=== PATIENT | female | born 1940 | race Caucasian/White ===

== ENCOUNTER 2018-08-29 04:09 | Observation (INO) | payer MEDICARE ==
[2018-08-29 04:57] LABS: #Eosinphils 0.4 thou/uL (0.0-0.7); #Lymphocytes 1.4 thou/uL (1.20-3.40); #Monocytes 0.5 thou/uL (0.11-0.59); #Neutrophils 3.4 thou/uL (1.40-6.50); %Basophils 0.3 % (0.0-1.0); %Eosinophils 7.4 % (0.0-10.0); %Monocytes 8.4 % (0.0-10.0); %Neutrophils 58.9 % (42.0-75.0); Mean Corpuscular HGB CONC 33.2 g/dL (32.0-36.0); Mean Corpuscular Hemoglobin 30.3 pg (27.0-31.0); Mean Corpuscular Volume 91.2 fL (78.0-98.0); Mean Platelet Volume 6.5 fL (7.4-10.4); Platelet Count 213 thou/uL (130-400); RBC Distribution Width 11.6 % (11.5-14.5); White Blood Cell (WBC) Count 5.7 thou/uL (4.8-10.8)
[2018-08-29 05:16] LABS: ALT (SGPT) 15 U/L (8-55); AST (SGOT) 15 U/L (5-34); Albumin 3.5 g/dL (3.4-4.8); Alkaline Phosphatase 126 U/L (40-150); Anion Gap 10 mmol/L (10-20); BUN (Urea Nitrogen) 10 mg/dL (9.8-20.1); Bilirubin, Total 0.5 mg/dL (0.2-1.2); Calc. Creatinine Clearance 0 mL/min (70-130); Calcium 9.4 mg/dL (7.8-10.44); Carbon Dioxide 30 mmol/L (23-31); Chloride 103 mmol/L (98-107); Estimated GFR-MDRD 48; Globulin 3.2 g/dL (2.4-3.5); Glucose 113 mg/dL (83-110); Potassium 4.4 mmol/L (3.5-5.1); Protein, Total 6.7 g/dL (6.0-8.3); Sodium 139 mmol/L (136-145)
[2018-08-29] MEDS ORDERED: Mag-Al 1200 mg/1200 mg/30 ML UDCUP ONE (05:42)
[2018-08-29] MEDS ORDERED: Lidocaine Viscous Sol 2% 15 ml UD Cup ONE (05:42)
--- NOTE | 2018-08-29 08:07 | RAD ---
SINGLE VIEW CHEST: Date: 08/29/18 COMPARISON: 10/23/14. HISTORY: Chest pain. FINDINGS: Single view of the chest shows a normal sized cardiomediastinal silhouette. There is no evidence of c onsolidation, mass, or pleural effusion. The bones are unremarkable. IMPRESSION: No evidence of acute cardiopulmonary disease. POS: [facility]
[2018-08-29 08:14] LABS: Troponin I Less than 0.010 ng/mL (< 0.028)
[2018-08-29 11:10] LABS: Troponin I 0.015 ng/mL (< 0.028)
[2018-08-29] MEDS ORDERED: Lisinopril 5 MG TAB PO SCH (14:00)
--- NOTE | 2018-08-29 15:00 | CON ---
DATE OF CONSULTATION: HISTORY OF PRESENT ILLNESS: The patient is a very pleasant 77-year-old woman who presents for evaluation of palpitations and chest and abdominal discomfort. The patient has a history of pre-excitation syndrome. She was seen in 2015 with palpitations. She had seen an agriculturist who after a long discussion was going to consider proceeding with ablation. This procedure was not performed. The patient reports having occasional palpitations. She presented to the emergency room with severe palpitations and reported to have abdominal and chest discomfort. The patient was in atrial fibrillation according to the EMS records and was given 5 of Lopressor and converted to sinus rhythm. The patient states that her chest discomfort resolved immediately after she received the medication. She denies having present discomfort. She has continued to have abdominal discomfort. PAST MEDICAL HISTORY: 1. Pre-excitation syndrome. 2. Hypertension. 3. Dyslipidemia. 4. Anxiety disorder. PAST SURGICAL HISTORY: Hysterectomy. MEDICATIONS: 1. Lisinopril 5 daily. 2. Metoprolol 50 daily. 3. Prozac 10 daily. ALLERGIES: IBUPROFEN AND XANAX. SOCIAL HISTORY: Nonsmoker. FAMILY HISTORY: No strong family history of coronary artery disease. MEDICATIONS ON ADMISSION: See nursing list. REVIEW OF SYSTEMS: A 10-point system otherwise unremarkable. No history of easy bruising or bleeding. PHYSICAL EXAMINATION: GENERAL: Obese woman, in no acute distress. VITAL SIGNS: Her blood pressure was 138/85, heart rate 76. NECK: Showed no jugular venous distention. LUNGS: Clear to auscultation. HEART: Regular rate and rhythm. Normal S1, S2. No murmurs. ABDOMEN: Distended. EXTREMITIES: Show no edema. VASCULAR: Radial pulses are 2+. LABORATORY DATA: White blood count 5.7, hemoglobin 13.0, hematocrit 39.2, platelets 213. Sodium 139, potassium 4.4, chloride 103, bicarb 30, BUN 10, creatinine is 1.1. Troponin less than 0.01. BNP was 52. IMAGING: Her EKG revealed normal sinus rhythm, normal ECG. IMPRESSION: 1. Possible atrial fibrillation with no documented arrhythmia. 2. History of pre-excitation syndrome. 3. Hypertension. 4. Dyslipidemia. 5. Obesity. PLAN: This patient presents for cardiac presents with probable possible atrial fibrillation. We will ask electrophysiology to further evaluate whether an ablation should be performed. The patient was scheduled to undergo a stress test. We will follow this patient with you through her hospitalization. Job ID: [id number] [facility]
[2018-08-29] MEDS ORDERED: Lisinopril 10 MG TAB ONE (15:11)
--- NOTE | 2018-08-29 20:25 | CON ---
DATE OF CONSULTATION: 08/29/2018 HISTORY OF PRESENT ILLNESS: I am seeing Ms. Erazo at our [facility] ER as an Electrophysiology advertising consultant. Her problems are: 1. Recurrent palpitations. a. Presentation to the ER today with episode of rapid heart rates up to 140 beats per minute with EKG from EMS reveals irregular rhythm, possible atrial fibrillation at 120 beats per minute. b. Prior EKGs were suggestive of initial slurring of QRS, but on the current EKG , no definite pre-excitation is seen. c. No history of narrow complex SVT in the past. 2. Negative cardiac workup in the past with echo from 10/09/2016 reveals moderate TR, mild pulmonary hypertension, LVEF 55%, and negative stress test in September 15, 2016. 3. Risk factors including hyperlipidemia and hypertension. 4. History of chest pain syndrome. 5. Obesity. ALLERGIES: NONE. MEDICATIONS: At home included: 1. Lisinopril. 2. Metoprolol 100 mg possible twice a day or once a day. 3. Aleve. 4. Nifedipine. She is not clear about her medications. SUBJECTIVE: Ms. Erazo started noticing rapid palpitations starting this morning with rapid heart rates. She felt some abdominal and chest tightness sensation along with them. EMS recorded EKGs as noted above because of atrial fibrillation. Since arrival, she remained stable. Cardiac enzymes were negative initially. She is asymptomatic now. No fever, chills, or cough. No stroke-like symptoms. No neurological deficits. Rest of 12-point system otherwise unremarkable. PAST MEDICAL HISTORY: As above. She has history of some PVCs in the past, hypertension, and dyslipidemia. PAST SURGICAL HISTORY: Significant for hysterectomy. SOCIAL HISTORY: The patient is . is at bedside. Denies smoking , EtOH, or drug use. FAMILY HISTORY: Not contributory. OBJECTIVE DATA: VITAL SIGNS: Blood pressure is 126/67, heart rate 69, respiratory rate 20. The patient is afebrile. PHYSICAL EXAMINATION: GENERAL: Alert and oriented woman, in no apparent distress. NECK: Supple. Jugular veins not distended. CHEST: Coarse without crackles. HEART: Sounds are regular to rate and rhythm. No murmur or gallop. ABDOMEN: Benign. Bowel sounds positive. EXTREMITIES: Lower extremity without edema, clubbing, or cyanosis. DATABASE: EKG is reviewed. Again, initial EKG from EMS reveals likely atrial fibrillation, nonspecific ST-T changes, rate of 120 beats per minute, no varying preexcitation is seen. The subsequent EKGs in the hospital reveal sinus rhythm, rate 87 beats per minute, normal SC, no definite pre-excitation. LABORATORY DATA: White cell count 5.7, hemoglobin 13, platelet count is 213. Sodium 139, potassium 4.4, BUN is 10, and creatinine 1.1. ASSESSMENT AND PLAN: Ms. Erazo is a pleasant 77-year-old woman with prior history of hypertension, dyslipidemia, mild pulmonary hypertension possibly due to obesity, no significant structural heart disease in prior workup. Otherwise, she had abnormal EKGs, which were possibly suggestive of pre-excitation, but no SVT is documented in the past. She is presenting with her first documented episode of atrial fibrillation, although, shorter palpitations and spells were noted in the past. We did discussed her arrhythmia issues. She could be considered for arrhythmia suppression and also anticoagulation. She has elevated CHADS-VASc score of 4 with age, gender, and hypertension. No recent bleeding issues are noted. Further monitoring might be reasonable to assess arrhythmia burden. It might consider initiating her on antiarrhythmic agent possibly flecainide, especially if her stress test by Dr. Hough is negative. Alternatively, ablation therapy is a good consideration, especially in view of the questionable pre-excitation syndrome, which could be assessed during EP study as well. For now, she appears to be stable for discharge. Discussed with Dr. Hough. He will see her as an outpatient. Dr. Hough will initiate monitoring and stress testing in the near future. Job ID: [id number] [facility]
[2018-08-30] MEDS ORDERED: Lisinopril 5 MG TAB PO SCH (09:00)
--- NOTE | 2018-08-30 11:54 | HP ---
CHIEF COMPLAINT: Chest discomfort, palpitation, and abdominal discomfort. HISTORY OF PRESENT ILLNESS: Ms. Erazo is a 77-year-old female with past medical history of hypertension, pre-excitation syndrome, anxiety disorder, woke up last night because of severe palpitations. The patient says her heart was racing fast; she did not feel any dizzy, but she felt some discomfort in the chest. No real chest pain. There is also some discomfort in the abdomen, did not have nausea or vomiting. No shortness of breath. No headache. Palpitation persisted, so she got up and checked her blood pressure which was 160/100, and her heart rate was in the 160s. At this point, she called the EMS to come to the hospital. EMS found the patient to have rapid heart rate, possibly atrial fibrillation and she was given Lopressor by the EMS about 5 mg and then she arrived in the ER, converted to normal sinus rhythm, and her discomfort in the abdomen also improved. The patient was evaluated in the ER. She is being admitted to rule out myocardial infarction as well as for evaluation of her atrial fibrillation, which is a new onset. PAST MEDICAL HISTORY: 1. Hypertension. 2. Hyperlipidemia. 3. Anxiety disorder. 4. Pre-excitation syndrome. PAST SURGICAL HISTORY: Status post hysterectomy. CURRENT MEDICATIONS: 1. Metoprolol 100 mg daily. 2. Lisinopril 40 mg daily. 3. Prozac 10 mg daily. ALLERGIES: ALLERGIC TO IBUPROFEN AND XANAX SOCIAL HISTORY: The patient lives with family. No history of smoking. No history of alcohol use. FAMILY HISTORY: Nothing significant. REVIEW OF SYSTEMS: CARDIOVASCULAR: Reveals chest discomfort, palpitation. No shortness of breath. RESPIRATORY: No cough, fever. GASTROINTESTINAL: Abdominal discomfort. No nausea or vomiting. CENTRAL NERVOUS SYSTEM: No headache or dizziness. PHYSICAL EXAMINATION: GENERAL: The patient is alert, awake, and oriented x3. VITAL SIGNS: Temperature 98, pulse 70, respirations 20,BP130/70 HEENT: Head is normocephalic and atraumatic. NECK: Supple. No JVD. LUNGS: Bilateral air entry . HEART: S1 and S2 present. ABDOMEN: Soft. No guarding, no tenderness. LABORATORY DATA: CBC shows WBC 5.7, hemoglobin 13, hematocrit 39, platelets 213. Metabolic panel shows sodium 139, potassium 4.4, chloride 103, CO2 30, BUN 10, creatinine 1.1, glucose 113, troponin I less than 0.015, BNP 52.2. Chest x-ray negative. EKG shows normal sinus rhythm, no acute ST-T wave changes. ASSESSMENT: 1. Possible atrial fibrillation with rapid ventricular rate, converted to normal sinus rhythm. 2. Hypertension, uncontrolled. 3. Hyperlipidemia. 4. Anxiety disorder. 5. History of pre-excitation syndrome. PLAN: 1. Cardiology consult. 2. Allergies to ibuprofen, Xanax. 3. Diet, cardiac. 4. Continue home medications. 5. Possible Cardiolite stress test. Job ID: [id number] [facility]
--- NOTE | 2018-08-31 17:15 | EKG ---
Test Reason : Blood Pressure : / mmHG Vent. Rate : 087 BPM Atrial Rate : 087 BPM P-R Int : 166 ms QRS Dur : 084 ms QT Int : 348 ms P-R-T Axes : 044 017 019 degrees QTc Int : 418 ms Normal sinus rhythm Low voltage QRS Borderline ECG Confirmed by DEYANIRA MAYFIELD ([id number]), editorial clerk FANY RAMOS ([id number] on 08/31/2018 5:14:55 PM Referred By: Confirmed By:DEYANIRA MAYFIELD
--- NOTE | 2018-09-05 15:27 | DIS ---
DATE OF ADMISSION: 08/29/2018 DATE OF DISCHARGE: 08/29/2018 ADMITTING DIAGNOSES: 1. Atrial fibrillation with rapid ventricular rate. 2. Hypertension, uncontrolled. 3. Hyperlipidemia. 4. Anxiety disorder. 5. History of pre-excitation syndrome. FINAL DIAGNOSES: 1. Possible atrial fibrillation with rapid ventricular rate, converted to normal sinus rhythm. 2. Hypertension, uncontrolled, improved. 3. Hyperlipidemia. 4. Anxiety disorder. 5. History of pre-excitation syndrome. BRIEF SUMMARY OF HOSPITAL COURSE: Ms. Erazo is a 77-year-old female admitted because of severe palpitation. The patient was found to be in atrial fibrillation with rapid ventricular rate. She was given Lopressor IV after which she converted to normal sinus rhythm. A cardiology consult and credentials specialist consultation were done. The patient was seen by Dr. Hough. Initially, he suggested a stress test and also EP consult, whether the patient needed to have ablation for atrial fibrillation. EP consult was done. The patient was seen by Dr. Peterson. His impression was the patient does have atrial fibrillation and she could be a candidate for ablation therapy. The patient can be started on Xarelto and can be discharged home, because she is stable right now. The patient is being discharged home in stable condition and her blood pressure is controlled. She is in normal sinus rhythm. PHYSICAL EXAMINATION: GENERAL: At the time of discharge, she was stable. VITAL SIGNS: Stable. LUNGS: Clear. HEART: Sounds regular. DISCHARGE MEDICATIONS: Include: 1. Lisinopril 5 mg daily. 2. Metoprolol 50 mg daily. 3. Xarelto 20 mg daily. FOLLOWUP: She will come for followup in 2 weeks. Job ID: [id number] [facility]
== END 2018-08-29 19:16 | disposition home or self-care (01) ==
LOC: ERS 04:09 → ERHOLD 06:00
PROVIDERS: ADMIT Internal Medicine; ATTEND Internal Medicine
DX: R00.2 Palpitations (principal); I10 Essential (primary) hypertension; E78.5 Hyperlipidemia, unspecified; F41.9 Anxiety disorder, unspecified; I45.6 Pre-excitation syndrome; Z90.710 Acquired absence of both cervix and uterus; Z88.8 Allergy status to other drugs, medicaments and biological substances; Z79.01 Long term (current) use of anticoagulants; Z79.899 Other long term (current) drug therapy
CPT/HCPCS: 36415; 71045; 80053; 83880; 84443; 84484; 85025; 93005; G0378

== ENCOUNTER 2018-09-21 20:21 | Observation (INO) | payer MEDICARE ==
[2018-09-21] MEDS ORDERED: methylPREDNISolone Sod Succ/PF 125 MG/2 ML VIAL ONE ×2 (20:59→22:28)
[2018-09-21] MEDS ORDERED: Famotidine/PF 20 mg/2ml Vial ONE ×2 (20:59→22:28)
[2018-09-21 21:30] LABS: #Eosinphils 0.3 thou/uL (0.0-0.7); #Lymphocytes 1.7 thou/uL (1.20-3.40); #Monocytes 0.5 thou/uL (0.11-0.59); #Neutrophils 4.6 thou/uL (1.40-6.50); %Basophils 0.1 % (0.0-1.0); %Eosinophils 3.9 % (0.0-10.0); %Lymphocytes 24.1 % (21.0-51.0); %Monocytes 7.6 % (0.0-10.0); %Neutrophils 64.3 % (42.0-75.0); Hemoglobin 13.1 g/dL (12.0-16.0); Mean Corpuscular HGB CONC 33.2 g/dL (32.0-36.0); Mean Corpuscular Hemoglobin 30.1 pg (27.0-31.0); Mean Corpuscular Volume 90.8 fL (78.0-98.0); Mean Platelet Volume 6.5 fL (7.4-10.4); Platelet Count 221 thou/uL (130-400); RBC Distribution Width 11.6 % (11.5-14.5); Red Blood Cell (RBC) Count 4.35 mill/uL (4.20-5.40); White Blood Cell (WBC) Count 7.1 thou/uL (4.8-10.8)
[2018-09-21 21:51] LABS: Anion Gap 10 mmol/L (10-20); BUN (Urea Nitrogen) 14 mg/dL (9.8-20.1); Calc. Creatinine Clearance 0 mL/min (70-130); Calcium 9.3 mg/dL (7.8-10.44); Carbon Dioxide 27 mmol/L (23-31); Chloride 104 mmol/L (98-107); Estimated GFR-MDRD 47; Glucose 123 mg/dL (83-110); Sodium 137 mmol/L (136-145)
[2018-09-22] MEDS ORDERED: Acetaminophen 325 MG TAB PO PRN (00:46)
[2018-09-22] MEDS ORDERED: Ondansetron ODT 4 MG TAB SL PRN (00:46)
[2018-09-22] MEDS ORDERED: Ondansetron PF 4 MG/2 ML Vial IVP PRN (00:46)
[2018-09-22 00:50] VITALS: BMI 46.7
[2018-09-22] MEDS ORDERED: diphenhydrAMINE 50 MG/ML VIAL IVP SCH (06:00)
[2018-09-22] MEDS ORDERED: Cyclobenzaprine 10 MG TAB PO PRN (06:25)
[2018-09-22] MEDS ORDERED: FLUoxetine HCl 20 MG CAP PO SCH ×2 (06:30→09:00)
[2018-09-22] MEDS ORDERED: busPIRone HCl 10 MG TAB PO SCH (09:00)
[2018-09-22] MEDS ORDERED: NIFEdipine XL 30 MG TAB PO SCH (09:00)
[2018-09-22] MEDS ORDERED: Rivaroxaban 10 MG TAB PO SCH (09:00)
[2018-09-22] MEDS ORDERED: Metoprolol Tartrate 100 MG TAB PO SCH (09:00)
[2018-09-22 12:35] VITALS: BP 117/59; TEMP 98.7
--- NOTE | 2018-09-22 20:51 | HP ---
CHIEF COMPLAINT: Allergic reaction with lip swelling and tongue swelling. HISTORY OF PRESENT ILLNESS: Ms. Erazo is a 77-year-old female with past medical history of hypertension, hyperlipidemia, noted to have marked swelling of the lower lip along with part of the tongue was swollen as well. Seemed to have any choking sensation and heaviness swallowing difficulty and noted to have trouble breathing. The patient takes lisinopril. She took some Benadryl, thinking this is allergy reaction, but the swelling did not get better, so she decided to come to the hospital. In the ER, the patient was evaluated and found to have possible angioedema. She was hemodynamically stable. The patient was given Solu-Medrol as well as kept on Benadryl. PAST MEDICAL HISTORY: 1. Hypertension. 2. Hyperlipidemia. 3. Anxiety disorder. 4. Family history of pre-excitation syndrome. 5. Atrial fibrillation, converted to normal sinus rhythm. PAST SURGICAL HISTORY: Status post hysterectomy. CURRENT MEDICATIONS: The patient is on; 1. Metoprolol 100 mg b.i.d. 2. Nifedipine 30 mg b.i.d. 3. Xarelto 20 mg daily. 4. Crestor 10 mg daily. 5. Flexeril 10 mg t.i.d. p.r.n. 6. BuSpar 10 mg b.i.d. 7. Lisinopril 20 b.i.d. 8. Prozac 20 mg daily. ALLERGIES: ALLERGIC TO IBUPROFEN AND XANAX. FAMILY HISTORY: Nothing contributory. SOCIAL HISTORY: The patient lives with family. No history of smoking. No history of alcohol. REVIEW OF SYSTEMS: CARDIOVASCULAR: No chest pain. No shortness of breath. RESPIRATORY: No fever or cough. GASTROINTESTINAL: No nausea, vomiting, abdominal pain. GENITOURINARY: No dysuria or hematuria. CENTRAL NERVOUS SYSTEM: No headaches or dizziness. PHYSICAL EXAMINATION: GENERAL: On examination, the patient is alert, awake, oriented x3. VITAL SIGNS: Temperature 98, pulse 67, respirations 20, blood pressure 130/70. HEENT: Head is normocephalic and atraumatic. Pupils are equal and reactive. Nasopharynx is pale and dry. Lower lip is swollen. Tongue, no swelling. NECK: Supple. No JVD. LUNGS: Bilateral air entry. No rales. No rhonchi. HEART: S1 and S2, regular. ABDOMEN: Soft. No distention. No tenderness. Normal bowel sounds present. RECTAL: Deferred. CENTRAL NERVOUS SYSTEM: No focal deficits. LABORATORY DATA: CBC shows WBC 7, hemoglobin 13, hematocrit 39, platelets 221. Metabolic panel; sodium 137, potassium 4, chloride 104, CO2 of 27. Urea nitrogen 14. Creatinine 1.1, glucose 133. Chest x-ray not done. ASSESSMENT: 1. Angioedema due to KARRIE inhibitor, improving. 2. Hypertension. 3. Hyperlipidemia. 4. History of atrial fibrillation, converted to normal sinus rhythm. PLAN: 1. Vital signs q.4 hours. 2. Activity as tolerated. 3. Allergies, ibuprofen and Xanax. 4. Hep-Lock. 5. Continue home medications. 6. Discontinue lisinopril. 7. Benadryl IVP q.6 hours. The patient possibly will be discharged soon - she has improved. Job ID: [id number]
[2018-09-22] MEDS ORDERED: Rosuvastatin 10 MG TAB PO SCH (21:00)
--- NOTE | 2018-09-23 14:54 | DIS ---
DATE OF ADMISSION: 09/21/2018 DATE OF DISCHARGE: 09/22/2018 ADMITTING DIAGNOSES: 1. Angioedema due to KARRIE inhibitor. 2. Hypertension. 3. Hyperlipidemia. 4. History of atrial fibrillation. FINAL DIAGNOSES: 1. Angioedema due to KARRIE inhibitor, improved. 2. Hypertension. 3. Hyperlipidemia. BRIEF SUMMARY OF HOSPITAL COURSE: Ms. Erazo is a 77-year-old female, admitted because of angioedema causing lip swelling and tongue swelling. She did not have any choking sensation. No shortness of breath. No respiratory distress. The patient was given Benadryl. Initially, she got Solu-Medrol added with Benadryl. Following day, her lip swelling completely gone, her tongue swelling gone. She did not have any problem swallowing. No shortness of breath. In view of improvement, the patient was discharged home. PHYSICAL EXAMINATION: GENERAL: At the time of discharge, she was stable. VITAL SIGNS: Stable. LUNGS: Clear. HEART: Heart sounds regular. ABDOMEN: Soft and nontender. Bowel sounds present. DISCHARGE MEDICATIONS: Include: 1. Nifedipine 30 mg b.i.d. 2. Fluoxetine 20 mg daily. 3. Metoprolol 100 mg b.i.d. 4. Crestor 10 mg at bedtime. 5. Xarelto 20 mg b.i.d. 6. BuSpar 10 mg b.i.d. 7. Flexeril p.r.n. 10 mg t.i.d. FOLLOWUP: The patient will come for followup next week. Job ID: [id number]
== END 2018-09-22 14:25 | disposition home or self-care (01) ==
LOC: ERS 20:21 → 2SW 21:21
PROVIDERS: ADMIT Internal Medicine; ATTEND Internal Medicine
DX: T78.3XXA Angioneurotic edema, initial encounter (principal); T46.4X5A Adverse effect of angiotensin-converting-enzyme inhibitors, initial encounter; I10 Essential (primary) hypertension; E78.5 Hyperlipidemia, unspecified; F41.9 Anxiety disorder, unspecified; I48.91 Unspecified atrial fibrillation; Z79.01 Long term (current) use of anticoagulants; Z79.899 Other long term (current) drug therapy; Z88.6 Allergy status to analgesic agent; Z88.8 Allergy status to other drugs, medicaments and biological substances
CPT/HCPCS: 80048; 85025; 96374; 96375 ×2; 99285; G0378; 36415; J1200; J2930; S0028

== ENCOUNTER 2018-10-21 15:21 | Emergency (ER) | payer MEDICARE ==
--- NOTE | 2018-10-21 16:05 | RAD ---
XR Chest 1 View Portable History: [Syncope. Palpitations.] Comparison: Multiple prior chest radiograph, most recent August 29, 2018 Findings: Heart size mildly enlarged. There is abnormal nodular density right lower lobe, similar to the comparison examination, although better seen on today's exam due to absence of an overlying lead. This was also seen seen back in 2015. No acute osseous abnormality. No pneumothorax or significant effusion. Impression: Marked cardiomegaly. No acute intrathoracic abnormality.
[2018-10-21 16:06] LABS: #Eosinphils 0.2 thou/uL (0.0-0.7); #Lymphocytes 1.7 thou/uL (1.20-3.40); #Monocytes 0.4 thou/uL (0.11-0.59); #Neutrophils 4.3 thou/uL (1.40-6.50); %Basophils 0.6 % (0.0-1.0); %Lymphocytes 25.4 % (21.0-51.0); %Monocytes 5.8 % (0.0-10.0); %Neutrophils 65.3 % (42.0-75.0); Hemoglobin 13.9 g/dL (12.0-16.0); Mean Corpuscular HGB CONC 33.4 g/dL (32.0-36.0); Mean Corpuscular Hemoglobin 30.7 pg (27.0-31.0); Mean Corpuscular Volume 91.9 fL (78.0-98.0); Platelet Count 237 thou/uL (130-400); RBC Distribution Width 11.5 % (11.5-14.5); Red Blood Cell (RBC) Count 4.54 mill/uL (4.20-5.40); White Blood Cell (WBC) Count 6.6 thou/uL (4.8-10.8)
[2018-10-21 16:25] LABS: ALT (SGPT) 12 U/L (8-55); AST (SGOT) 13 U/L (5-34); Albumin 3.8 g/dL (3.4-4.8); Alkaline Phosphatase 111 U/L (40-150); Anion Gap 12 mmol/L (10-20); BUN (Urea Nitrogen) 9 mg/dL (9.8-20.1); Bilirubin, Total 0.7 mg/dL (0.2-1.2); Calc. Creatinine Clearance 0 mL/min (70-130); Calcium 9.2 mg/dL (7.8-10.44); Carbon Dioxide 26 mmol/L (23-31); Chloride 104 mmol/L (98-107); Estimated GFR-MDRD 52; Globulin 2.5 g/dL (2.4-3.5); Glucose 101 mg/dL (83-110); Potassium 4.2 mmol/L (3.5-5.1); Protein, Total 6.3 g/dL (6.0-8.3); Sodium 138 mmol/L (136-145)
== END 2018-10-21 17:53 | disposition home or self-care (01) ==
LOC: ERS 15:21
DX: R55 Syncope and collapse (principal); R00.2 Palpitations; I48.91 Unspecified atrial fibrillation; E78.5 Hyperlipidemia, unspecified; I10 Essential (primary) hypertension; K21.9 Gastro-esophageal reflux disease without esophagitis; F32.9 Major depressive disorder, single episode, unspecified; M19.90 Unspecified osteoarthritis, unspecified site; F41.9 Anxiety disorder, unspecified; Z79.01 Long term (current) use of anticoagulants; Z79.899 Other long term (current) drug therapy
CPT/HCPCS: 36415; 71045; 80053; 84484; 85025; 93005; 96360; 96361

== ENCOUNTER 2022-02-15 23:09 | Emergency (ER) | payer MEDICARE ==
[2022-02-16 00:05] LABS: #Basophils 0.1 thou/uL (0.0-0.2); #Eosinphils 0.2 thou/uL (0.0-0.7); #Lymphocytes 2.6 thou/uL (1.20-3.40); #Monocytes 0.5 thou/uL (0.11-0.59); #Neutrophils 5.8 thou/uL (1.40-6.50); %Basophils 0.7 % (0.0-1.0); %Eosinophils 2.1 % (0.0-10.0); %Lymphocytes 28.5 % (21.0-51.0); %Monocytes 5.5 % (0.0-10.0); %Neutrophils 63.2 % (42.0-75.0); Hemoglobin 15.8 g/dL (12.0-16.0); Mean Corpuscular HGB CONC 33.6 g/dL (32.0-36.0); Mean Corpuscular Hemoglobin 31.3 pg (27.0-31.0); Mean Corpuscular Volume 93.2 fL (78.0-98.0); Mean Platelet Volume 7.3 fL (7.4-10.4); Platelet Count 271 thou/uL (130-400); RBC Distribution Width 11.1 % (11.5-14.5); Red Blood Cell (RBC) Count 5.04 mill/uL (4.20-5.40); White Blood Cell (WBC) Count 9.2 thou/uL (4.8-10.8)
[2022-02-16 00:29] LABS: ALT (SGPT) 12 U/L (8-55); AST (SGOT) 14 U/L (5-34); Albumin 4.4 g/dL (3.4-4.8); Alkaline Phosphatase 111 U/L (40-110); Anion Gap 15 mmol/L (10-20); BUN (Urea Nitrogen) 12 mg/dL (9.8-20.1); Calc. Creatinine Clearance 0 mL/min (70-130); Calcium 10.2 mg/dL (7.8-10.44); Carbon Dioxide 27 mmol/L (23-31); Chloride 101 mmol/L (98-107); Estimated GFR 49; Globulin 3.4 g/dL (2.4-3.5); Glucose 102 mg/dL (83-110); Potassium 3.4 mmol/L (3.5-5.1); Protein, Total 7.8 g/dL (5.8-8.1); Sodium 140 mmol/L (136-145)
== END 2022-02-16 01:38 | disposition home or self-care (01) ==
LOC: ERS 23:09
DX: R00.2 Palpitations (principal); I48.91 Unspecified atrial fibrillation; I10 Essential (primary) hypertension; E78.5 Hyperlipidemia, unspecified; K21.9 Gastro-esophageal reflux disease without esophagitis
CPT/HCPCS: 71045; 80053; 83735; 84443; 84484; 85025; 93005

== ENCOUNTER 2022-04-28 11:46 | Outpatient (CLI) | payer MEDICARE ==
[2022-04-28 13:54] LABS: Hemoglobin 13.9 g/dL (12.0-15.5); Mean Corpuscular HGB CONC 33.1 g/dL (32.0-36.0); Mean Corpuscular Hemoglobin 31.1 pg (27.0-33.0); Mean Platelet Volume 9.7 fl (7.4-10.4); Platelet Count 276 10x3/uL (150-450); RBC Distribution Width 12.5 % (11.5-14.5); Red Blood Cell (RBC) Count 4.47 10x6/uL (3.90-5.03); White Blood Cell (WBC) Count 7.3 10x3/uL (3.5-10.5)
[2022-04-28 14:17] LABS: INR-International Normal Ratio 1.4; PTT 57.1 sec (22.0-33.0); Prothrombin Time 15.1 sec (9.5-12.1)
[2022-04-28 14:20] LABS: ALT (SGPT) 9 U/L (8-55); AST (SGOT) 13 U/L (5-34); Alkaline Phosphatase 118 U/L (40-110); Anion Gap 14 mmol/L (10-20); BUN (Urea Nitrogen) 12 mg/dL (9.8-20.1); Bilirubin, Direct 0.2 mg/dL (0.1-0.3); Bilirubin, Total 0.8 mg/dL (0.2-1.2); Calc. Creatinine Clearance 0 mL/min (70-130); Calcium 9.3 mg/dL (7.8-10.44); Carbon Dioxide 25 mmol/L (23-31); Chloride 104 mmol/L (98-107); Estimated GFR 54; Glucose 100 mg/dL (83-110); Potassium 4.2 mmol/L (3.5-5.1); Protein, Total 6.6 g/dL (5.8-8.1); Sodium 139 mmol/L (136-145)
== END 2022-04-28 11:47 | disposition home or self-care (01) ==
LOC: LABBT 11:46
PROVIDERS: ATTEND Internal Medicine Cardiovascular Disease
DX: Z01.818 Encounter for other preprocedural examination (principal)
CPT/HCPCS: 71046; 80048; 80076; 85027; 85610; 85730; 93005; 93010

== ENCOUNTER 2022-05-01 08:31 | Observation (INO) | payer MEDICARE ==
[2022-04-27 15:31] VITALS: BMI 39.6
[2022-05-01] MEDS ORDERED: Isoproterenol 0.2 MG/1 ML AMP ONE (09:12)
[2022-05-01] MEDS ORDERED: Heparin 10,000 UNITS/ 10 ML VIAL ONE (09:12)
[2022-05-01] MEDS ORDERED: EPINEPHrine 1 MG/ML AMP ONE (09:12)
[2022-05-01] MEDS ORDERED: Protamine Sulfate 50 MG/5 ML VIAL ONE (09:12)
[2022-05-01] MEDS ORDERED: Heparin 25,000 units/D5W 500 ML ONE (09:12)
[2022-05-01] MEDS ORDERED: Lidocaine 1% (PF) 30 ML VIAL ONE (09:12)
[2022-05-01] MEDS ORDERED: fentaNYL PF 100 MCG/2 ML SYRINGE ONE ×2 (12:09→15:01)
[2022-05-01] MEDS ORDERED: Ondansetron PF 4 MG/2 ML Vial ONE (14:50)
[2022-05-01] MEDS ORDERED: Succinylcholine 200 MG/10 ml SYRINGE FS ONE (14:50)
[2022-05-01] MEDS ORDERED: PROPOFOL 200 MG/20 ML VIAL ONE (14:50)
[2022-05-01] MEDS ORDERED: Rocuronium Bromide 10 MG/ML (10ML VIAL) ONE (14:50)
[2022-05-01] MEDS ORDERED: Dexamethasone 20 MG/5 ML VIAL ONE (14:50)
[2022-05-01] MEDS ORDERED: Phenylephrine 10 MG/ML VIAL ONE (14:50)
[2022-05-01] MEDS ORDERED: NEOSTIGMINE 3 MG/3 ML SYR 3 MG/3 ML SYRINGE ONE (14:50)
[2022-05-01] MEDS ORDERED: Glycopyrrolate 0.2 MG/ML 5 ML SYRINGE ONE (14:50)
[2022-05-01] MEDS ORDERED: FENTANYL 50 MCG/ML 1 ML VIAL ONE ×3 (16:47→18:59)
[2022-05-01] MEDS ORDERED: Ondansetron HCl/PF 4 MG/2 ML Vial IVP PRN (17:30)
[2022-05-01] MEDS ORDERED: Promethazine HCl 25 MG/ML VIAL IM PRN (17:30)
[2022-05-01] MEDS ORDERED: Morphine Sulfate 2 MG/ML SYRINGE SLOW IVP PRN (17:30)
[2022-05-01] MEDS ORDERED: Promethazine HCl 25 MG/ML VIAL IVPB PRN (17:30)
[2022-05-01] MEDS ORDERED: Acetaminophen 500 MG TAB PO PRN (17:58)
[2022-05-01] MEDS ORDERED: Ketorolac Tromethamine 30 MG/ML VIAL IVP PRN (18:04)
[2022-05-01] MEDS ORDERED: Acetaminophen 325 MG TAB PO PRN (18:15)
[2022-05-01] MEDS: NIFEdipine XL 30 MG TAB PO SCH (22:12)
[2022-05-01] MEDS: Dabigatran 150 mg Capsule PO SCH (22:12)
[2022-05-02 08:12] VITALS: BP 144/79; TEMP 97.9
[2022-05-02] MEDS: Dabigatran 150 mg Capsule PO SCH (08:22)
[2022-05-02] MEDS: NIFEdipine XL 30 MG TAB PO SCH (08:22)
[2022-05-02] MEDS ORDERED: FLU VACC QS2022-23(65YR UP)/PF 240 MCG/0.7 ML SYRINGE IM ONE (09:00)
[2022-05-02] MEDS ORDERED: Metoprolol Tartrate 100 MG TAB PO SCH (09:00)
[2022-05-02] MEDS ORDERED: Loratadine 10 MG TAB PO SCH (09:00)
== END 2022-05-02 11:20 | disposition home or self-care (01) ==
LOC: SDC 08:31 → 2SW 17:44
PROVIDERS: ADMIT Internal Medicine Cardiovascular Disease; ATTEND Internal Medicine Cardiovascular Disease
PROC: 02583ZZ Destruction of Conduction Mechanism, Percutaneous Approach (ICD-10-PCS; principal; 2022-05-01)
PROC: 02K83ZZ Map Conduction Mechanism, Percutaneous Approach (ICD-10-PCS; 2022-05-01)
PROC: 4A023FZ Measurement of Cardiac Rhythm, Percutaneous Approach (ICD-10-PCS; 2022-05-01)
PROC: 4A0234Z Measurement of Cardiac Electrical Activity, Percutaneous Approach (ICD-10-PCS; 2022-05-01)
PROC: 0JH632Z Insertion of Monitoring Device into Chest Subcutaneous Tissue and Fascia, Percutaneous Approach (ICD-10-PCS; 2022-05-01)
DX: I48.0 Paroxysmal atrial fibrillation (principal); I47.1 Supraventricular tachycardia; I48.3 Typical atrial flutter; G47.33 Obstructive sleep apnea (adult) (pediatric); I10 Essential (primary) hypertension; E78.5 Hyperlipidemia, unspecified; M19.90 Unspecified osteoarthritis, unspecified site; M79.7 Fibromyalgia; E66.9 Obesity, unspecified; Z68.39 Body mass index [BMI] 39.0-39.9, adult; Z86.16 Personal history of COVID-19; Z87.891 Personal history of nicotine dependence; Z79.01 Long term (current) use of anticoagulants; Z79.899 Other long term (current) drug therapy; Z88.6 Allergy status to analgesic agent; Z88.8 Allergy status to other drugs, medicaments and biological substances; Z20.822 Contact with and (suspected) exposure to COVID-19
CPT/HCPCS: 85347 ×2; 93005; 93622; 93623; 93655; 93656; C1732 ×2; C1760; C1769; C1894; J3010; U0003; U0005; 93010; G0378; J0171; J1100; J1644; J2001; J2370; J2405; J2704; J2720